=== PATIENT | female | born 1935 | race Two or more races ===

== ENCOUNTER 2023-05-03 19:26 | Inpatient (IN) | payer MEDICARE, OTHER ==
[~2023-05-03] VITALS: Ht 157.5 cm; Wt 65.3 kg
[2023-05-03] MEDS: HALOPERIDOL LACTATE INJ 5 MG/ML VIAL IM ONE (19:50)
[2023-05-03] MEDS ORDERED: HALOPERIDOL LACTATE INJ 5 MG/ML VIAL ONE (19:51)
[2023-05-03] MEDS: IV NS 0.9% 1,000 ML BAG IV ONE (20:00)
[2023-05-03 20:27] LABS: BASOPHILS # (AUTO) 0.1 K/uL (0.0-0.2); BASOPHILS % (AUTO) 0.4 % (0.0-2.0); EOSINOPHILS # (AUTO) 0.1 K/uL (0.0-0.7); EOSINOPHILS % (AUTO) 0.4 % (0.0-6.0); HEMATOCRIT 38 % (33-45); HEMOGLOBIN 12.7 g/dL (11.5-14.8); LYMPHOCYTES % (AUTO) 26.2 % (20.0-44.0); MEAN CORPUSCULAR HEMOGLOBIN 31 PG (26.0-33.0); MEAN CORPUSCULAR HGB CONC 34 g/dl (31.0-36.0); MEAN CORPUSCULAR VOLUME 91 fL (82-100); MONOCYTES # (AUTO) 1.8 K/uL (0.1-1.30); MONOCYTES % (AUTO) 9.7 % (2.0-12.0); NEUTROPHILS % (AUTO) 63.3 % (43.0-81.0); PLATELET COUNT (AUTO) 667 K/uL (150-450); RED BLOOD CELL COUNT(AUTO) 4.14 MIL/uL (4.0-5.2); RED CELL DISTRIBUTION WIDTH 14.8 % (11.5-15.0); WHITE BLOOD COUNT (AUTO) 18.9 K/uL (4.3-11.0)
[2023-05-03 20:34] LABS: CALCIUM, SERUM 8.6 mg/dL (8.5-10.1); CARBON DIOXIDE 23 mmol/L (21-32); CHLORIDE 97 mmol/L (98-107); CREATININE 1.2 mg/dL (0.6-1.3); GLUCOSE 131 mg/dL (74-106); POTASSIUM 3.8 mmol/L (3.5-5.1); SODIUM SERUM 132 mmol/L (136-145); UREA NITROGEN, BLOOD 25 mg/dL (7-18)
[2023-05-03 20:40] LABS: ALANINE AMINOTRANSFERASE 14 U/L (12-78); ALBUMIN 2.5 g/dL (3.4-5.0); ALKALINE PHOSPHATASE 131 U/L (46-116); ASPARTATE AMINOTRANSFERASE 27 U/L (15-37); BILIRUBIN,DIRECT 0.2 mg/dL (0.0-0.2); BILIRUBIN,TOTAL 0.6 mg/dL (0.2-1.0); TOTAL PROTEIN, SERUM 6.8 g/dL (6.4-8.2)
[2023-05-03 20:44] LABS: LACTIC ACID 2.4 mmol/L (0.4-2.0)
[2023-05-03 20:49] LABS: INR 1.5 (0.91-1.10); PARTIAL THROMBOPLASTIN TIME 50.3 SEC (24.3-34.3); PROTHROMBIN TIME 15.5 SECS (9.2-11.1)
[2023-05-03] MEDS ORDERED: CEFTRIAXONE 1GM BAG (ER ONLY) 50 ML IV ONE (21:43)
[2023-05-03] MEDS: CEFTRIAXONE 1GM BAG (ER ONLY) 50 ML IV ONE (21:45)
[2023-05-03 22:12] LABS: APPEARANCE,URINE CLEAR (CLEAR); BILIRUBIN,URINE NEGATIVE (NEGATIVE); BLOOD, URINE 1+ Ery/uL (NEGATIVE); COLOR,URINE YELLOW (YELLOW); KETONES,URINE NEGATIVE (NEGATIVE); LEUKOCYTE ESTERASE ,URINE 2+ (NEGATIVE); NITRITE, URINE NEGATIVE (NEGATIVE); PROTEIN,URINE 2+ mg/dl (NEGATIVE); UGLUCOSE NEGATIVE (NEGATIVE); UROBILINOGEN,URINE 0.2 EU/dL (0.2)
[2023-05-03 22:32] LABS: ADD URINE CULTURE YES; BACTERIA,URINE 4+ /HPF (None Seen); WBC,URINE TOO NUMEROUS TO COUN /HPF (0-3)
[2023-05-04] MEDS ORDERED: MAG HYDROX/AL HYDROX/SIMETH 30 ML UDC PO PRN
[2023-05-04] MEDS ORDERED: ACETAMINOPHEN 325 MG TABLET PO PRN
[2023-05-04] MEDS ORDERED: MAGNESIUM HYDROXIDE 30 ML UDC PO PRN
[2023-05-04] MEDS ORDERED: ZOLPIDEM TARTRATE 5 MG TABLET PO PRN
[2023-05-04] MEDS ORDERED: ONDANSETRON HCL/PF 4 MG/2 ML VIAL IVP PRN
[2023-05-04] MEDS ORDERED: LEVO25TA7 PO (00:50)
[2023-05-04] MEDS ORDERED: HYDR-4075 PO (00:50)
[2023-05-04] MEDS ORDERED: NIFE-35 PO (00:50)
[2023-05-04] MEDS ORDERED: CITA10TA9 PO (00:50)
[2023-05-04] MEDS ORDERED: METO25TA4 PO (00:50)
[2023-05-04] MEDS ORDERED: FURO-144 PO (00:50)
[2023-05-04] MEDS ORDERED: POTA10CA43 PO (00:50)
[2023-05-04] MEDS ORDERED: APIX5TAB PO (00:50)
[2023-05-04 01:30] VITALS: BP 129/72; TEMP 97.5; O2SAT 97
[2023-05-04] MEDS: IV NS 0.9% 1,000 ML IV PRN (02:21)
[2023-05-04] MEDS: LEVOFLOXACIN 750 MG /D5W 150ML 750 MG in PREMIX 1 EA IV ONE (02:22)
[2023-05-04] MEDS: LEVOFLOXACIN 750 MG /D5W 150ML 150 ML IV ONE (02:24)
[2023-05-04 02:30] VITALS: BP 129/72; TEMP 98.4; O2SAT 97
[2023-05-04 07:00] LABS: CALCIUM, SERUM 8.5 mg/dL (8.5-10.1); CREATININE 1.1 mg/dL (0.6-1.3); PHOSPHORUS 3.4 mg/dL (2.5-4.9); POTASSIUM 3.4 mmol/L (3.5-5.1)
[2023-05-04 07:05] LABS: BASOPHILS % (AUTO) 0.1 % (0.0-2.0); EOSINOPHILS % (AUTO) 0.1 % (0.0-6.0); HEMATOCRIT 33 % (33-45); HEMOGLOBIN 11.2 g/dL (11.5-14.8); LYMPHOCYTES # (AUTO) 1.9 K/uL (0.8-4.8); LYMPHOCYTES % (AUTO) 16.9 % (20.0-44.0); MEAN CORPUSCULAR HEMOGLOBIN 31 PG (26.0-33.0); MEAN CORPUSCULAR HGB CONC 34 g/dl (31.0-36.0); MEAN CORPUSCULAR VOLUME 91 fL (82-100); MONOCYTES # (AUTO) 0.7 K/uL (0.1-1.30); MONOCYTES % (AUTO) 6.6 % (2.0-12.0); NEUTROPHILS # (AUTO) 8.6 K/uL (1.8-8.9); NEUTROPHILS % (AUTO) 76.3 % (43.0-81.0); PLATELET COUNT (AUTO) 400 K/uL (150-450); RED BLOOD CELL COUNT(AUTO) 3.62 MIL/uL (4.0-5.2); RED CELL DISTRIBUTION WIDTH 14.7 % (11.5-15.0); WHITE BLOOD COUNT (AUTO) 11.2 K/uL (4.3-11.0)
[2023-05-04 07:30] VITALS: BP 149/84; TEMP 98.2; O2SAT 99
[2023-05-04] MEDS ORDERED: hydrALAZINE HCL 10 MG TABLET PO SCH (09:00)
[2023-05-04] MEDS ORDERED: NIFEdipine XL (30MG) 30 MG TAB PO SCH (09:00)
[2023-05-04] MEDS ORDERED: HYDR-4077 PO (09:29)
[2023-05-04] MEDS: LEVOTHYROXINE SODIUM 25 MCG TABLET PO SCH (10:18)
[2023-05-04] MEDS: CITALOPRAM HYDROBROMIDE 10 MG TABLET PO SCH (10:18)
[2023-05-04] MEDS: POTASSIUM CL. PREMIX PERIPHER. 50 ML IV SCH (10:19)
[2023-05-04] MEDS: METOPROLOL SUCCINATE 25 MG TAB.SR.24H PO SCH (10:19)
[2023-05-04 15:59] VITALS: BP 152/84; TEMP 99.5; O2SAT 97
[2023-05-04] MEDS: CLOTRIMAZOLE 1% 15 GM TUBE TP SCH ×2 (18:13→18:14)
[2023-05-04] MEDS: Z GUARD REMEDY 4 OZ OINT TP PRN (18:13)
[2023-05-04] MEDS: DOCUSATE SODIUM 100 MG CAPSULE PO SCH (18:14)
[2023-05-04 20:00] VITALS: BP 158/78; TEMP 97.9; O2SAT 98
[2023-05-04] MEDS: KETOROLAC TROMETHAMINE INJ 30 MG/ML VIAL IV ONE (21:47)
[2023-05-04] MEDS: TAMSULOSIN 0.4 MG CAP.SR.24H PO SCH (22:00)
[2023-05-04] MEDS: POLYETHYLENE GLYCOL 3350 17 GM POWD.PACK PO SCH (22:00)
[2023-05-05] VITALS: BP 163/76; TEMP 97.8; O2SAT 98
[2023-05-05 05:00] VITALS: BP 158/79; TEMP 98.1; O2SAT 99
[2023-05-05 07:33] LABS: BASOPHILS % (AUTO) 0.1 % (0.0-2.0); EOSINOPHILS % (AUTO) 0.1 % (0.0-6.0); HEMATOCRIT 29 % (33-45); HEMOGLOBIN 9.8 g/dL (11.5-14.8); LYMPHOCYTES % (AUTO) 19.7 % (20.0-44.0); MEAN CORPUSCULAR HEMOGLOBIN 32 PG (26.0-33.0); MEAN CORPUSCULAR HGB CONC 34 g/dl (31.0-36.0); MEAN CORPUSCULAR VOLUME 93 fL (82-100); MONOCYTES % (AUTO) 10.2 % (2.0-12.0); NEUTROPHILS % (AUTO) 69.9 % (43.0-81.0); PLATELET COUNT (AUTO) 357 K/uL (150-450); RED BLOOD CELL COUNT(AUTO) 3.09 MIL/uL (4.0-5.2); RED CELL DISTRIBUTION WIDTH 14.8 % (11.5-15.0)
[2023-05-05 08:05] LABS: ALANINE AMINOTRANSFERASE 13 U/L (12-78); ALKALINE PHOSPHATASE 90 U/L (46-116); ASPARTATE AMINOTRANSFERASE 28 U/L (15-37); BILIRUBIN,TOTAL 0.5 mg/dL (0.2-1.0); CALCIUM, SERUM 8.5 mg/dL (8.5-10.1); CARBON DIOXIDE 21 mmol/L (21-32); CHLORIDE 105 mmol/L (98-107); CREATININE 1.1 mg/dL (0.6-1.3); GLUCOSE 80 mg/dL (74-106); MAGNESIUM 2.1 mg/dL (1.8-2.4); PHOSPHORUS 3.3 mg/dL (2.5-4.9); POTASSIUM 3.6 mmol/L (3.5-5.1); SODIUM SERUM 137 mmol/L (136-145); TOTAL PROTEIN, SERUM 5.5 g/dL (6.4-8.2); UREA NITROGEN, BLOOD 31 mg/dL (7-18)
[2023-05-05 08:08] LABS: CREATINE KINASE, TOTAL 145 U/L (26-192)
[2023-05-05 08:09] VITALS: BP_SYST 138; BP_SYST 157; BP_DIAS 60; BP_DIAS 92; TEMP 97.5; TEMP 97.9; O2SAT 100; O2SAT 98
[2023-05-05 08:10] LABS: LACTIC ACID 0.7 mmol/L (0.4-2.0)
[2023-05-05 08:28] LABS: CREATININE, URINE 154.9 MG/DL (30.0-125.0); URINE TOTAL PROTEIN 146.9 mg/dL (0-11.9)
[2023-05-05] MEDS: PSYLLIUM SEED 1 PKT PACKET PO SCH (09:40)
[2023-05-05] MEDS: BLOOD SUGAR DIAGNOSTIC 1 EACH STRIP IN SCH (11:29)
[2023-05-05 11:55] VITALS: BP 142/69; TEMP 97.9; O2SAT 95
[2023-05-05 15:47] VITALS: BP 156/63; TEMP 99; O2SAT 95
[2023-05-05 20:00] VITALS: BP 160/78; TEMP 97.5; O2SAT 97
[2023-05-05] MEDS: INSULIN REGULAR, HUMAN 100 UNIT/ML 3 ML VIAL SQ PRN (21:47)
[2023-05-06 00:30] VITALS: BP 157/71
[2023-05-06] MEDS: LEVOFLOXACIN 750 MG /D5W 150ML 750 MG in PREMIX 1 EA IV SCH (01:21)
[2023-05-06 07:32] LABS: BASOPHILS % (AUTO) 0.3 % (0.0-2.0); EOSINOPHILS % (AUTO) 0.5 % (0.0-6.0); HEMATOCRIT 29 % (33-45); HEMOGLOBIN 9.5 g/dL (11.5-14.8); LYMPHOCYTES # (AUTO) 1.7 K/uL (0.8-4.8); LYMPHOCYTES % (AUTO) 25.9 % (20.0-44.0); MEAN CORPUSCULAR HEMOGLOBIN 31 PG (26.0-33.0); MEAN CORPUSCULAR HGB CONC 33 g/dl (31.0-36.0); MEAN CORPUSCULAR VOLUME 95 fL (82-100); MONOCYTES # (AUTO) 0.6 K/uL (0.1-1.30); MONOCYTES % (AUTO) 9.7 % (2.0-12.0); NEUTROPHILS # (AUTO) 4.2 K/uL (1.8-8.9); NEUTROPHILS % (AUTO) 63.6 % (43.0-81.0); PLATELET COUNT (AUTO) 317 K/uL (150-450); RED BLOOD CELL COUNT(AUTO) 3.05 MIL/uL (4.0-5.2); RED CELL DISTRIBUTION WIDTH 15.1 % (11.5-15.0); WHITE BLOOD COUNT (AUTO) 6.6 K/uL (4.3-11.0)
[2023-05-06 07:51] LABS: CALCIUM, SERUM 8.2 mg/dL (8.5-10.1); CREATININE 0.7 mg/dL (0.6-1.3); PHOSPHORUS 2.1 mg/dL (2.5-4.9); POTASSIUM 3.4 mmol/L (3.5-5.1)
[2023-05-06 08:10] LABS: PTH, INTACT 15 pg/mL (15-65)
[2023-05-06 08:31] VITALS: BP 143/59; TEMP 97.5; O2SAT 98
[2023-05-06] MEDS: POTASSIUM CHLORIDE 20 MEQ POWDER PACKET PO ONE (09:50)
[2023-05-06] MEDS: NIFEdipine XL (30MG) 30 MG TAB PO SCH (09:57)
[2023-05-06 10:49] LABS: INR 1.15 (0.91-1.10); PROTHROMBIN TIME 12.1 SECS (9.2-11.1)
[2023-05-06 12:11] LABS: *SPE A/G RATIO 0.9 (0.7-1.7); *SPE ALBUMIN 2.5 g/dL (2.9-4.4); *SPE ALPHA-1-GLOBULIN 0.2 g/dL (0.0-0.4); *SPE ALPHA-2-GLOBULIN 0.5 g/dL (0.4-1.0); *SPE BETA GLOBULIN 0.6 g/dL (0.7-1.3); *SPE GLOBULIN, TOTAL 2.7 g/dL (2.2-3.9); *SPE M-SPIKE Not Observed g/dL (Not Observed); *SPE PROTEIN TOTAL 5.2 g/dL (6.0-8.5); *SPEGAMMA GLOBULIN 1.4 g/dL (0.4-1.8)
[2023-05-06] MEDS: K PHOS NEUTRAL 250 MG TABLET PO ONE (15:42)
[2023-05-06 16:10] VITALS: BP 132/68; TEMP 97.7; O2SAT 98
[2023-05-06] MEDS: GLUCERNA SHAKE 237 ML CAN PO SCH (17:57)
[2023-05-06 20:00] VITALS: BP 152/79; TEMP 98; O2SAT 98
[2023-05-07 08:00] VITALS: BP 160/96; TEMP 99.3; O2SAT 97
[2023-05-07] MEDS: ENOXAPARIN SODIUM 40 MG/0.4 ML DISP.SYRIN SQ SCH (09:41)
[2023-05-07 16:00] VITALS: BP 130/78; TEMP 100.2; O2SAT 98
[2023-05-07] MEDS: K PHOS NEUTRAL 250 MG TABLET PO ONE (16:17)
[2023-05-07 20:00] VITALS: BP 129/67; TEMP 98.8; O2SAT 98
[2023-05-08 07:30] VITALS: BP 153/71; TEMP 98.1; O2SAT 98
[2023-05-08 13:16] LABS: CALCIUM, SERUM 8.2 mg/dL (8.5-10.1); CREATININE 0.6 mg/dL (0.6-1.3); POTASSIUM 3.8 mmol/L (3.5-5.1)
[2023-05-08 20:00] VITALS: BP 153/71; TEMP 98.2; O2SAT 99
[2023-05-09 07:21] LABS: BASOPHILS % (AUTO) 0.2 % (0.0-2.0); EOSINOPHILS # (AUTO) 0.1 K/uL (0.0-0.7); EOSINOPHILS % (AUTO) 1.2 % (0.0-6.0); HEMATOCRIT 29 % (33-45); HEMOGLOBIN 9.8 g/dL (11.5-14.8); LYMPHOCYTES # (AUTO) 2.1 K/uL (0.8-4.8); LYMPHOCYTES % (AUTO) 29.6 % (20.0-44.0); MEAN CORPUSCULAR HEMOGLOBIN 31 PG (26.0-33.0); MEAN CORPUSCULAR HGB CONC 34 g/dl (31.0-36.0); MEAN CORPUSCULAR VOLUME 92 fL (82-100); MONOCYTES # (AUTO) 0.8 K/uL (0.1-1.30); MONOCYTES % (AUTO) 10.4 % (2.0-12.0); NEUTROPHILS # (AUTO) 4.2 K/uL (1.8-8.9); NEUTROPHILS % (AUTO) 58.6 % (43.0-81.0); PLATELET COUNT (AUTO) 339 K/uL (150-450); RED BLOOD CELL COUNT(AUTO) 3.13 MIL/uL (4.0-5.2); RED CELL DISTRIBUTION WIDTH 15.1 % (11.5-15.0); WHITE BLOOD COUNT (AUTO) 7.2 K/uL (4.3-11.0)
[2023-05-09 07:30] VITALS: BP 151/71; TEMP 98.4; O2SAT 99
[2023-05-09 08:12] LABS: CALCIUM, SERUM 7.7 mg/dL (8.5-10.1); CARBON DIOXIDE 24 mmol/L (21-32); CHLORIDE 106 mmol/L (98-107); CREATININE 0.5 mg/dL (0.6-1.3); GLUCOSE 73 mg/dL (74-106); MAGNESIUM 1.9 mg/dL (1.8-2.4); PHOSPHORUS 2.6 mg/dL (2.5-4.9); POTASSIUM 3.6 mmol/L (3.5-5.1); SODIUM SERUM 137 mmol/L (136-145); UREA NITROGEN, BLOOD 15 mg/dL (7-18)
[2023-05-09 16:14] VITALS: BP 157/66; TEMP 98.2; O2SAT 99
[2023-05-09 20:00] VITALS: BP 157/71; TEMP 97.7; O2SAT 99
[2023-05-10 07:29] LABS: BASOPHILS % (AUTO) 0.1 % (0.0-2.0); EOSINOPHILS # (AUTO) 0.1 K/uL (0.0-0.7); EOSINOPHILS % (AUTO) 1.4 % (0.0-6.0); HEMATOCRIT 31 % (33-45); HEMOGLOBIN 10.5 g/dL (11.5-14.8); LYMPHOCYTES # (AUTO) 1.7 K/uL (0.8-4.8); LYMPHOCYTES % (AUTO) 22.6 % (20.0-44.0); MEAN CORPUSCULAR HEMOGLOBIN 31 PG (26.0-33.0); MEAN CORPUSCULAR HGB CONC 34 g/dl (31.0-36.0); MEAN CORPUSCULAR VOLUME 92 fL (82-100); MONOCYTES # (AUTO) 0.7 K/uL (0.1-1.30); MONOCYTES % (AUTO) 8.5 % (2.0-12.0); NEUTROPHILS # (AUTO) 5.2 K/uL (1.8-8.9); NEUTROPHILS % (AUTO) 67.4 % (43.0-81.0); PLATELET COUNT (AUTO) 345 K/uL (150-450); RED BLOOD CELL COUNT(AUTO) 3.33 MIL/uL (4.0-5.2); RED CELL DISTRIBUTION WIDTH 15.1 % (11.5-15.0); WHITE BLOOD COUNT (AUTO) 7.7 K/uL (4.3-11.0)
[2023-05-10 07:54] LABS: CALCIUM, SERUM 7.8 mg/dL (8.5-10.1); CARBON DIOXIDE 24 mmol/L (21-32); CHLORIDE 106 mmol/L (98-107); CREATININE 0.6 mg/dL (0.6-1.3); GLUCOSE 65 mg/dL (74-106); MAGNESIUM 1.9 mg/dL (1.8-2.4); POTASSIUM 3.7 mmol/L (3.5-5.1); SODIUM SERUM 136 mmol/L (136-145); UREA NITROGEN, BLOOD 17 mg/dL (7-18)
[2023-05-10 08:00] VITALS: BP 162/65; TEMP 97.7; O2SAT 99
[2023-05-10 08:48] LABS: PHOSPHORUS 2.7 mg/dL (2.5-4.9)
[2023-05-10] MEDS: DEXTROSE 50%-WATER 50 ML DISP.SYRIN IV PRN (08:58)
[2023-05-10] MEDS ORDERED: VANC1PLA9 IV (10:05)
[2023-05-10] MEDS ORDERED: LINE600T13 PO (13:32)
[2023-05-10 16:00] VITALS: BP 127/72; TEMP 98.2; O2SAT 99
[2023-05-10 16:32] VITALS: BP 127/72
== END 2023-05-10 18:45 | DRG 698 ==
LOC: ER 19:28 → TELE 05-04 00:09 → MED 05-06 05:35
PROVIDERS: ADMIT Nurse Practitioner Acute Care; ATTEND Nurse Practitioner Acute Care
PROC: 0TP5X0Z Removal of Drainage Device from Kidney, External Approach (ICD-10-PCS; principal; 2023-05-10)
DX: N99.522 Malfunction of incontinent external stoma of urinary tract (principal); A41.9 Sepsis, unspecified organism; G93.41 Metabolic encephalopathy; E44.0 Moderate protein-calorie malnutrition; E87.1 Hypo-osmolality and hyponatremia; E87.20 Acidosis, unspecified; N17.9 Acute kidney failure, unspecified; N10 Acute pyelonephritis; Z16.24 Resistance to multiple antibiotics; N13.6 Pyonephrosis; Y73.2 Prosthetic and other implants, materials and accessory gastroenterology and urology devices associated with adverse incidents; D64.9 Anemia, unspecified; E03.9 Hypothyroidism, unspecified; E11.22 Type 2 diabetes mellitus with diabetic chronic kidney disease; E11.42 Type 2 diabetes mellitus with diabetic polyneuropathy; E86.1 Hypovolemia; E87.6 Hypokalemia; E88.09 Other disorders of plasma-protein metabolism, not elsewhere classified; L30.4 Erythema intertrigo; M24.561 Contracture, right knee; M24.562 Contracture, left knee; N18.9 Chronic kidney disease, unspecified; Z79.4 Long term (current) use of insulin; Z87.442 Personal history of urinary calculi; Z87.440 Personal history of urinary (tract) infections; Z88.0 Allergy status to penicillin; Z86.718 Personal history of other venous thrombosis and embolism; Z74.01 Bed confinement status; Z74.09 Other reduced mobility; F03.90 Unspecified dementia, unspecified severity, without behavioral disturbance, psychotic disturbance, mood disturbance, and anxiety; Z20.822 Contact with and (suspected) exposure to COVID-19; B95.2 Enterococcus as the cause of diseases classified elsewhere; Z95.828 Presence of other vascular implants and grafts; Z68.26 Body mass index [BMI] 26.0-26.9, adult; I12.9 Hypertensive chronic kidney disease with stage 1 through stage 4 chronic kidney disease, or unspecified chronic kidney disease; Y83.8 Other surgical procedures as the cause of abnormal reaction of the patient, or of later complication, without mention of misadventure at the time of the procedure; Y73.8 Miscellaneous gastroenterology and urology devices associated with adverse incidents, not elsewhere classified; Y92.89 Other specified places as the place of occurrence of the external cause; E86.9 Volume depletion, unspecified
CPT/HCPCS: 36415; 71045-TC; 76770-TC; 80048-TC; 80053-TC; 80076-TC; 81001; 82550-TC; 82570-TC; 82962-TC; 83605-TC; 83735-TC; 83970; 84100-TC; 84155; 84165; 84300-TC; 84484-TC; 85025-TC; 85610-TC; 85730-TC; 87040-TC; 87081-TC; 87086-TC; 92526; 92611-TC; A4216; A4223; G0378; J0696; J1630; J1650; J1815; J1885; J1956; J3480; J7030